=== PATIENT | female | born 2000 | race Caucasian/White ===

== ENCOUNTER 2024-04-13 23:27 | Emergency (ER) | payer OTHER ==
[2024-04-13 23:44] VITALS: TEMP 97.9
--- NOTE | 2024-04-14 00:27 | ED ---
Abdominal Pain HPI - General Source: patient Mode of arrival: ambulatory <Emely Page - Last Filed: 04/14/24 00:26> - General Source: patient, RN notes reviewed, old records reviewed <Alfredo Russo - Last Filed: 04/14/24 05:55> <Parker Grissom - Last Filed: 04/14/24 08:46> - General Chief Complaint: Abdominal Pain Stated Complaint: Abd pain Time Seen by Provider: 04/14/24 00:26 - History of Present Illness Initial Comments: 23-year-old female presenting with chief complaint of abdominal pain. Started around a half an hour prior to arrival. This is a sharp pain in the upper abdomen, mainly the right upper quadrant. Admits to nausea with no vomiting. No history of abdominal surgeries. (Page,Emely) Is a 23-year-old female presents emergency department complaining of abdominal pain of unknown reason. States she suddenly had it started last night. Cause nausea but no emesis. States that it is in the epigastric and right upper quadrant. Worse with some movements. Patient is currently on her menstrual cycle she thinks he describes it similar to cramping but worse. Denies any diarrhea or constipation. Denies vaginal discharge or bleeding. Denies any urinary complaints. Presents for further evaluation at this time. No history of intra-abdominal surgeries. (Alfredo Russo) - Related Data Allergies Allergy/AdvReac Type Severity Reaction Status Date / Time No Known Allergies Allergy Verified 04/13/24 23:44 Review of Systems ROS Other: All systems not noted in ROS Statement are negative. <Emely Page - Last Filed: 04/14/24 00:26> ROS Other: All systems not noted in ROS Statement are negative. <Alfredo Russo - Last Filed: 04/14/24 05:55> ROS Other: All systems not noted in ROS Statement are negative. <Parker Grissom - Last Filed: 04/14/24 08:46> ROS Statement: Those systems with pertinent positive or pertinent negative responses have been documented in the HPI. Review of Systems: CONST: Denies fever EYES: Denies blurry vision ENT: Denies nasal congestion C/V: Denies Chest pain RESP: Denies shortness of breath GI: Endorses abdominal pain : Denies dysuria SKIN: Denies rash. MSK: Denies joint pain. NEURO: Denies headache (Alfredo Russo) Past Medical History Past Medical History: No Reported History History of Any Multi-Drug Resistant Organisms: None Reported Past Surgical History: No Surgical Hx Reported Past Psychological History: Anxiety, Depression Smoking Status: Never smoker Past Alcohol Use History: None Reported Past Drug Use History: None Reported <Emely Page - Last Filed: 04/14/24 00:26> General Exam <Emely Page - Last Filed: 04/14/24 00:26> <Alfredo Russo - Last Filed: 04/14/24 05:55> - General Exam Comments Initial Comments: Visual Physical Exam Vital signs reviewed General: Well-appearing, nontoxic, no acute distress. Head: Normocephalic, atraumatic Eyes: PERRLA, EOMI ENT: Airway patent Chest: Nonlabored breathing Skin: No visual rash, normal skin tone Neuro: Alert and oriented 3 Musculoskeletal: No gross abnormalities (Emely Page) General: Appears in mild distress secondary to abdominal discomfort. HEAD: Normal with no signs of head trauma. EYES: PERRLA, EOMI, conjunctiva normal, no discharge. ENT: Hearing grossly intact, normal oropharynx. RESPIRATORY: Clear breath sounds bilaterally. No wheezes, rales, or rhonchi. C/V: Regular rate and rhythm. S1 and S2 auscultated, no edema, peripheral pulses 2+ and intact throughout ABD: Abdomen is soft, nondistended. Tender to palpation in the right upper quadrant and epigastric region. No significant lower quadrant tenderness to palpation. No suprapubic tenderness to palpation. No guarding or rebound tenderness. No peritoneal signs. EXT: Normal range of motion, no obvious deformity SKIN: No rashes or lesions observed on exposed skin. NEURO: Alert and oriented x 4. (Alfredo Russo) Course Vital Signs 04/13/24 04/14/24 04/14/24 23:39 05:18 08:38 Temperature 97.9 F Pulse Rate 103 H 100 91 Respiratory 16 18 16 Rate Blood Pressure 109/76 116/97 133/95 O2 Sat by Pulse 97 96 99 Oximetry Medical Decision Making <Emely Page - Last Filed: 04/14/24 00:26> - Lab Data Result diagrams: 04/14/24 01:50 04/14/24 01:50 <KaranYuriAlfredo - Last Filed: 04/14/24 05:55> - Lab Data Result diagrams: 04/14/24 08:21 04/14/24 01:50 <Parker Grissom - Last Filed: 04/14/24 08:46> - Medical Decision Making I performed the quick note portion of this visit, electronically signed Emely Page PA-C (Emely Page) Was pt. sent in by a medical professional or institution (, [facility], PROTOTYPE MODEL [employer]ER, urgent care, hospital, or prison...) When possible be specific @ -No Did you speak to anyone other than the patient for history (EMS, parent, family, police, friend...)? What history was obtained from this source @ -No Did you review nursing and triage notes (agree or disagree)? Why? @ -I reviewed and agree with nursing and triage notes Were old charts reviewed (outside hosp., previous admission, EMS record, old EKG, old radiological studies, urgent care reports/EKG's, prison records)? Report findings @ -No old charts were reviewed Differential Diagnosis (chest pain, altered mental status, abdominal pain women, abdominal pain men, vaginal bleeding, weakness, fever, dyspnea, syncope, headache, dizziness, GI bleed, back pain, seizure, CVA, palpatations, mental health, musculoskeletal)? @ -Differential Abdominal Pain Women: Appendicitis, Cholecystitis, diverticulosis, ischemic bowel, pancreatitis, hepatitis, UTI, gastroenteritis, AAA, incarcerated hernia, bowel obstruction, constipation, inflammatory bowel, hepatitis, peptic ulcer disease, splenic infarction, perforated viscus, vulvitis, ovarian torsion, PID, kidney stone, pl acenta abruption, this is not meant to be an all-inclusive list EKG interpreted by me (3pts min.). @ -As above X-rays interpreted by me (1pt min.). @ -None done CT interpreted by me (1pt min.). @ -CT imaging revealed no obvious acute intra-abdominal process. Patient does have a right greater than left ovarian follicle or cyst but no other obvious finding. U/S interpreted by me (1pt. min.). @ -Gallbladder ultrasound negative for any obvious acute process with the gallbladder but they do see what could be a cyst versus appendix. We will obtain CT imaging. What testing was considered but not performed or refused? (CT, X-rays, U/S, labs)? Why? @ -None What meds were considered but not given or refused? Why? @ -None Did you discuss the management of the patient with other professionals (professionals i.e. , PA, PROTOTYPE MODEL MAKER, lab, RT, psych nurse, case management social worker, marketing information manager, teacher, cra officer, case resource manager)? Give summary @ -Discussed with Dr. Marshall who requested that we obtain the ultrasound of the pelvis prior to admission to medicine in case it is an RESPIRATORY CLINICIAN in case. I believe this is reasonable. Was smoking cessation discussed for >3mins.? @ -No Was critical care preformed (if so, how long)? @ -No Were there social determinants of health that impacted care today? How? (Homelessness, low income, unemployed, alcoholism, drug addiction, transportation, low edu. Level, literacy, decrease access to med. care, nursing home, rehab)? @ -No Was there de-escalation of care discussed even if they declined (Discuss DNR or withdrawal of care, Hospice)? DNR status @ -No What co-morbidities impacted this encounter? (DM, HTN, Smoking, COPD, CAD, Cancer, CVA, ARF, Chemo, Hep., AIDS, mental health diagnosis, sleep apnea, morbid obesity)? @ -None Was patient admitted / discharged? Hospital course, mention meds given and route, prescriptions, significant lab abnormalities, going to OR and other pertinent info. @ -Based on the patient's presentation and physical exam, presents emergency d epartment with abdominal pain. Vital signs are within acceptable limits. Seems to be more right upper quadrant and epigastric region. We will obtain abdominal laboratory studies and start with a gallbladder ultrasound. Originally seen as a quick note. Patient in agreement this plan. Given IV fluids. Declined analgesia medications. Laboratory studies remarkable for leukocytosis of 25.4. Lactic acid is slightly elevated 2.1. She is not . Remainder the workup unremarkable. Due to the white count, we will obtain a CT at this time. Ultrasound did not show any gallbladder pathology but did show findings concerning for possible appendicitis versus ovarian cyst. CT abdomen pelvis reveals no obvious acute process other than the ovarian cyst. I discussed results with the patient. I would like to obtain an ultrasound of the pelvis. She was in agreement this plan. She was empirically given a dose of Zosyn as it was taking a long time for radiology to read the CT report. We will continue with maintenance fluids. Patient was in agreement this plan. I was going to admit to medicine for the leukocytosis of unknown significance however discussed with Dr. Marshall and he requested ultrasound of the pelvis to be obtained first in case it is a RESPIRATORY CLINICIAN complaint for admission. I believe this is reasonable. Patient signed out to Dr. Grissom pending results of pelvic ultrasound. Undiagnosed new problem with uncertain prognosis? @ -No Drug Therapy requiring intensive monitoring for toxicity (Heparin, Nitro, Insulin, Cardizem)? @ -No Were any procedures done? @ -No Diagnosis/symptom? @ -Abdominal pain of unknown etiology, ovarian cyst, leukocytosis Acute, or Chronic, or Acute on Chronic? @ -Acute Uncomplicated (without systemic symptoms) or Complicated (systemic symptoms)? @ -Complicated Side effects of treatment? @ -No Exacerbation, Progression, or Severe Exacerbation? @ -No Poses a threat to life or bodily function? How? (Chest pain, USA, MS, pneumonia, PE, COPD, DKA, ARF, appy, cholecystitis, CVA, Diverticulitis, Homicidal, Suicidal, threat to staff... and all critical care pts) @ -Possibly, yes (Alfredo Russo) I did reevaluate the patient after signout she is resting comfortably did not require any significant pain medication. No fever. Imaging reviewed including ultrasound of the pelvis which had been ordered and results were pending. This showed a enlarged right ovary with normal arterial and venous flow. Patient does report that her pain is more so on the right. Patient prefers to not be admitted. I did repeat a CBC which shows a downtrending white blood cell count at 14. Patient is given return parameters and will return with fever, worsening pain, nausea vomiting, any new or concerning symptoms. She will follow-up with her primary care provider. (Parker Grissom) - Lab Data Lab Results 04/14/24 04/14/24 04/14/24 Range/Units 01:50 01:50 01:50 WBC 25.4 H (3.8-10.6) k/uL RBC 5.42 H (3.80-5.40) m/uL Hgb 15.4 (11.4-16.0) gm/dL Hct 46.3 H (34.0-46.0) % MCV 85.5 (80.0-100.0) fL MCH 28.5 (25.0-35.0) pg MCHC 33.3 (31.0-37.0) g/dL RDW 13.4 (11.5-15.5) % Plt Count 338 (150-450) k/uL MPV 8.4 Neutrophils % 77 % Lymphocytes % 16 % Monocytes % 4 % Eosinophils % 1 % Basophils % 0 % Neutrophils # 19.7 H (1.3-7.7) k/uL Lymphocytes # 4.1 (1.0-4.8) k/uL Monocytes # 1.0 (0-1.0) k/uL Eosinophils # 0.3 (0-0.7) k/uL Basophils # 0.1 (0-0.2) k/uL Sodium 133 L (137-145) mmol/L Potassium 4.1 (3.5-5.1) mmol/L Chloride 102 (98-107) mmol/L Carbon Dioxide 25 (22-30) mmol/L Anion Gap 6 mmol/L BUN 18 H (7-17) mg/dL Creatinine 0.66 (0.52-1.04) mg/dL Est GFR (CKD-EPI)AfAm >90 (>60 ml/min/1.73 sqM) Est GFR (CKD-EPI)NonAf >90 (>60 ml/min/1.73 sqM) Glucose 102 H (74-99) mg/dL Lactic Ac Sepsis Rflx Plasma Lactic Acid Lars 2.1 H* (0.7-2.0) mmol/L Calcium 9.2 (8.4-10.2) mg/dL Total Bilirubin 0.6 (0.2-1.3) mg/dL AST 27 (14-36) U/L ALT 21 (4-34) U/L Alkaline Phosphatase 80 (38-126) U/L Total Protein 8.2 (6.3-8.2) g/dL Albumin 4.6 (3.5-5.0) g/dL Amylase 69 (30-110) U/L Lipase 72 (23-300) U/L HCG, Qual Urine Color Urine Appearance (Clear) Urine pH (5.0-8.0) Ur Specific Anson (1.001-1.035) Urine Protein (Negative) Urine Glucose (UA) (Negative) Urine Ketones (Negative) Urine Blood (Negative) Urine Nitrite (Negative) Urine Bilirubin (Negative) Urine Urobilinogen (<2.0) mg/dL Ur Leukocyte Esterase (Negative) Urine RBC (0-5) /hpf Urine WBC (0-5) /hpf Ur Squamous Epith Cells (0-4) /hpf Urine Bacteria (None) /hpf Urine Mucus (None) /hpf Group A Strep (PCR) (Not Detectd) 04/14/24 04/14/24 04/14/24 Range/Units 01:50 03:29 04:11 WBC (3.8-10.6) k/uL RBC (3.80-5.40) m/uL Hgb (11.4-16.0) gm/dL Hct (34.0-46.0) % MCV (80.0-100.0) fL MCH (25.0-35.0) pg MCHC (31.0-37.0) g/dL RDW (11.5-15.5) % Plt Count (150-450) k/uL MPV Neutrophils % % Lymphocytes % % Monocytes % % Eosinophils % % Basophils % % Neutrophils # (1.3-7.7) k/uL Lymphocytes # (1.0-4.8) k/uL Monocytes # (0-1.0) k/uL Eosinophils # (0-0.7) k/uL Basophils # (0-0.2) k/uL Sodium (137-145) mmol/L Potassium (3.5-5.1) mmol/L Chloride (98-107) mmol/L Carbon Dioxide (22-30) mmol/L Anion Gap mmol/L BUN (7-17) mg/dL Creatinine (0.52-1.04) mg/dL Est GFR (CKD-EPI)AfAm (>60 ml/min/1.73 sqM) Est GFR (CKD-EPI)NonAf (>60 ml/min/1.73 sqM) Glucose (74-99) mg/dL Lactic Ac Sepsis Rflx Y Plasma Lactic Acid Lars (0.7-2.0) mmol/L Calcium (8.4-10.2) mg/dL Total Bilirubin (0.2-1.3) mg/dL AST (14-36) U/L ALT (4-34) U/L Alkaline Phosphatase (38-126) U/L Total Protein (6.3-8.2) g/dL Albumin (3.5-5.0) g/dL Amylase (30-110) U/L Lipase (23-300) U/L HCG, Qual Not Detected Urine Color Colorless Urine Appearance Clear (Clear) Urine pH 6.0 (5.0-8.0) Ur Specific Anson 1.027 (1.001-1.035) Urine Protein Negative (Negative) Urine Glucose (UA) Negative (Negative) Urine Ketones Negative (Negative) Urine Blood Negative (Negative) Urine Nitrite Negative (Negative) Urine Bilirubin Negative (Negative) Urine Urobilinogen <2.0 (<2.0) mg/dL Ur Leukocyte Esterase Trace H (Negative) Urine RBC 1 (0-5) /hpf Urine WBC 7 H (0-5) /hpf Ur Squamous Epith Cells 2 (0-4) /hpf Urine Bacteria Rare H (None) /hpf Urine Mucus Rare H (None) /hpf Group A Strep (PCR) (Not Detectd) 04/14/24 04/14/24 Range/Units 04:48 08:21 WBC 14.1 H (3.8-10.6) k/uL RBC 4.66 (3.80-5.40) m/uL Hgb 13.5 (11.4-16.0) gm/dL Hct 39.8 (34.0-46.0) % MCV 85.5 (80.0-100.0) fL MCH 29.0 (25.0-35.0) pg MCHC 33.9 (31.0-37.0) g/dL RDW 13.3 (11.5-15.5) % Plt Count 320 (150-450) k/uL MPV 7.8 Neutrophils % 74 % Lymphocytes % 19 % Monocytes % 5 % Eosinophils % 1 % Basophils % 0 % Neutrophils # 10.4 H (1.3-7.7) k/uL Lymphocytes # 2.7 (1.0-4.8) k/uL Monocytes # 0.7 (0-1.0) k/uL Eosinophils # 0.1 (0-0.7) k/uL Basophils # 0.0 (0-0.2) k/uL Sodium (137-145) mmol/L Potassium (3.5-5.1) mmol/L Chloride (98-107) mmol/L Carbon Dioxide (22-30) mmol/L Anion Gap mmol/L BUN (7-17) mg/dL Creatinine (0.52-1.04) mg/dL Est GFR (CKD-EPI)AfAm (>60 ml/min/1.73 sqM) Est GFR (CKD-EPI)NonAf (>60 ml/min/1.73 sqM) Glucose (74-99) mg/dL Lactic Ac Sepsis Rflx Plasma Lactic Acid Lars (0.7-2.0) mmol/L Calcium (8.4-10.2) mg/dL Total Bilirubin (0.2-1.3) mg/dL AST (14-36) U/L ALT (4-34) U/L Alkaline Phosphatase (38-126) U/L Total Protein (6.3-8.2) g/dL Albumin (3.5-5.0) g/dL Amylase (30-110) U/L Lipase (23-300) U/L HCG, Qual Urine Color Urine Appearance (Clear) Urine pH (5.0-8.0) Ur Specific Anson (1.001-1.035) Urine Protein (Negative) Urine Glucose (UA) (Negative) Urine Ketones (Negative) Urine Blood (Negative) Urine Nitrite (Negative) Urine Bilirubin (Negative) Urine Urobilinogen (<2.0) mg/dL Ur Leukocyte Esterase (Negative) Urine RBC (0-5) /hpf Urine WBC (0-5) /hpf Ur Squamous Epith Cells (0-4) /hpf Urine Bacteria (None) /hpf Urine Mucus (None) /hpf Group A Strep (PCR) NOT DETECTED (Not Detectd) Disposition <Emely Page - Last Filed: 04/14/24 00:26> <Alfredo Russo - Last Filed: 04/14/24 05:55> Is patient prescribed a controlled substance at d/c from ED?: No Time of Disposition: 08:46 <Parker Grissom - Last Filed: 04/14/24 08:46> Clinical Impression: Abdominal pain of unknown etiology, Leukocytosis, Ovarian cyst, Abdominal pain Disposition: HOME SELF-CARE Condition: Fair Instructions (If sedation given, give patient instructions): Abdominal Pain (ED), Leukocytosis (ED) Additional Instructions: Please return to the emergency department with worsening symptoms, fever, any new or concerning symptoms Referrals: None,Stated [Primary Care Provider] - 1-2 days Miguel Rincon DO [REFERRING] - 1-2 days
[2024-04-14] MEDS: SODIUM CHLORIDE 0.9% 1,000 ML IV STA ×2 (02:27→04:18)
[2024-04-14] MEDS: ONDANSETRON 4 MG/2 ML VIAL IVP STA (02:28)
[2024-04-14] MEDS: PANTOPRAZOLE 40 MG/10 ML VIAL IVP STA (02:29)
[2024-04-14 02:32] LABS: Basophils # (A) 0.1 k/uL (0-0.2); Basophils % (A) 0 %; Eosinophils # (A) 0.3 k/uL (0-0.7); Eosinophils % (A) 1 %; HCT 46.3 % (34.0-46.0); HGB 15.4 gm/dL (11.4-16.0); Lymphocytes # (A) 4.1 k/uL (1.0-4.8); Lymphocytes % (A) 16 %; MCH 28.5 pg (25.0-35.0); MCHC 33.3 g/dL (31.0-37.0); MCV 85.5 fL (80.0-100.0); Mean Platelet Volume 8.4; Monocytes % (A) 4 %; Neutrophils # (A) 19.7 k/uL (1.3-7.7); Neutrophils % (A) 77 %; Platelet Count 338 k/uL (150-450); RBC 5.42 m/uL (3.80-5.40); RDW 13.4 % (11.5-15.5); WBC 25.4 k/uL (3.8-10.6)
--- NOTE | 2024-04-14 03:04 | US ---
EXAM: US Abdomen Complete CLINICAL HISTORY: US Reason: RUQ pain TECHNIQUE: Real-time ultrasound of the abdomen with image documentation. COMPARISON: No relevant prior studies available. FINDINGS: Liver: The liver measures 17.4 cm. No intrahepatic bile duct dilation. No focal liver lesion is seen. Gallbladder: The gallbladder is nondilated. No gallstones, wall thickening, or surrounding fluid. Common bile duct: The common bile duct is nondilated measuring 4 mm. Pancreas: The pancreas is only partially visualized but unremarkable. Kidneys: Unremarkable. No stones. No hydronephrosis. The right kidney measures 10.9 x 4.5 x 4.6 cm, 118 mL. Spleen: Unremarkable. No splenomegaly. Aorta: Unremarkable. No abdominal aortic aneurysm. Inferior vena cava: Unremarkable. Other findings: The sales representative health insurance measures a hypoechoic area in the right lower quadrant measuring 3.8 x 4.5 x 2.6 cm. IMPRESSION: Unremarkable appearance of the gallbladder. No acute inflammatory process is seen within the right upper quadrant. The sales representative health insurance measures a hypoechoic area in the right lower quadrant measuring 3.8 x 4.5 x 2.6 cm. No surrounding structures are visible to determine what the sales representative health insurance was measuring. If there is concern for acute abdominal process, consider CT.
[2024-04-14 03:12] LABS: ALT 21 U/L (4-34); African American GFR (CKD) >90 (>60 ml/min/1.73 sqM); Albumin 4.6 g/dL (3.5-5.0); Amylase 69 U/L (30-110); Anion Gap 6 mmol/L; Blood Urea Nitrogen 18 mg/dL (7-17); Calcium 9.2 mg/dL (8.4-10.2); Carbon Dioxide 25 mmol/L (22-30); Chloride 102 mmol/L (98-107); Glucose 102 mg/dL (74-99); Lipase 72 U/L (23-300); Non-African American GFR(CKD) >90 (>60 ml/min/1.73 sqM); Sodium 133 mmol/L (137-145); Total Bilirubin 0.6 mg/dL (0.2-1.3); Total Protein 8.2 g/dL (6.3-8.2)
[2024-04-14 03:27] LABS: AST 27 U/L (14-36); Alkaline Phosphatase 80 U/L (38-126); Potassium 4.1 mmol/L (3.5-5.1)
--- NOTE | 2024-04-14 04:38 | CT ---
EXAM: CT Abdomen and Pelvis With Intravenous Contrast CLINICAL HISTORY: ITS.REASON CT Reason: abd pain TECHNIQUE: Axial computed tomography images of the abdomen and pelvis with intravenous contrast. CTDI is 63.3 mGy and DLP is 2962.4 mGy-cm. This CT exam was performed using one or more of the following dose reduction techniques: automated exposure control, adjustment of the mA and/or kV according to patient size, and/or use of iterative reconstruction technique. COMPARISON: None FINDINGS: Lung bases: Unremarkable. No mass. No consolidation. ABDOMEN: Liver: Hepatic steatosis. Mild hepatomegaly. Gallbladder and bile ducts: Unremarkable. No calcified stones. No ductal dilation. Pancreas: Unremarkable. No mass. No ductal dilation. Spleen: Unremarkable. No splenomegaly. Adrenals: Unremarkable. No mass. Kidneys and ureters: Unremarkable. No hydronephrosis or obstructing ureteral stone. Stomach and bowel: Evaluation of the stomach is limited by underdistention. Fat within the wall of the ascending colon and proximal transverse colon may be secondary to chronic inflammatory process. No mucosal thickening. No definite acute bowel inflammation. PELVIS: Appendix: Normal appendix. Bladder: Unremarkable. No mass. Reproductive: Right greater than left ovarian follicles or cysts could be further evaluated with ultrasound if clinically indicated. ABDOMEN and PELVIS: Intraperitoneal space: Unremarkable. No free air. No significant fluid collection. Bones/joints: No acute fracture. No dislocation. Soft tissues: Unremarkable. Vasculature: Unremarkable. No abdominal aortic aneurysm. Lymph nodes: Nonspecific mildly prominent inguinal lymph nodes and mesenteric and retroperitoneal lymph nodes which could be reactive. IMPRESSION: Right greater than left ovarian follicles or cysts could be further evaluated with ultrasound if clinically indicated. No acute abnormality in the abdomen or pelvis.
[2024-04-14 04:41] LABS: Appearance,Urine Clear (Clear); Bacteria,Urine Rare /hpf; Bilirubin,Urine Negative (Negative); Blood,Urine Negative (Negative); Color,Urine Colorless; Glucose,Urine (UA) Negative (Negative); Ketones,Urine Negative (Negative); Leukocyte Esterase,Urine Trace (Negative); Mucus,Urine Rare /hpf; Nitrite,Urine Negative (Negative); Protein,Urine Negative (Negative); RBC,Urine 1 /hpf (0-5); Specific Gravity,Urine 1.027 (1.001-1.035); Squamous Epithelial Cell,Urine 2 /hpf (0-4); Urobilinogen,Urine <2.0 mg/dL (<2.0); WBC,Urine 7 /hpf (0-5)
[2024-04-14] MEDS: PIPERACILLIN-TAZOBACTAM 3.375 GM in SODIUM CHLORIDE 0.9% 100 ML IVPB STA (05:10)
--- NOTE | 2024-04-14 08:26 | US ---
EXAMINATION TYPE: US pelvis complete transvag DATE OF EXAM: 04/14/2024 COMPARISON: NONE CLINICAL INDICATION: Female, 23 years old with history of eval for ovarian torsion; Pain started 8.5 hours ago. Irregular periods. G0. TECHNIQUE: Transvaginal (TV) and Transabdominal (TA) . Transabdominal grayscale, color Doppler and spectral Doppler sonographic images of the pelvis were acquired. FINDINGS: Date of LMP: Unknown EXAM MEASUREMENTS: Uterus: 7.7 x 3.7 x 2.7 cm Endometrial Stripe: 0.42 cm Right Ovary: 5.7 x 4.1 x 4.6 cm for volume of 39.6 mL. Left Ovary: 3.7 x 2.9 x 2.6 cm for a volume of 14.5 mL 1. Uterus: Anteverted. Myometrium shows some heterogeneity 2. Endometrium: 0.42 cm 3. Right Ovary: Enlarged. *Anechoic area seen= 3.4 x 3.4 x 3.8 cm. 4. Left Ovary: Anechoic area seen= 2.3 x 1.9 x 1.5 cm. Spectral, color and waveform doppler imaging shows arterial and venous flow within the ovaries. Anna Marie ble to clearly evaluate bloodflow to left ovary by TV, both arterial and venous waveforms shown TA. 5. Bilateral Adnexa: Appear wnl 6. Posterior cul-de-sac: Appears wnl Equipment Engineering Technician notes: Exam slightly limited due to patient body habitus. IMPRESSION: 1. Satisfactory arterial and venous flow to the right ovary. Limited blood flow assessment by transva ginal scanning though the left ovary by appears satisfactory by transabdominal scanning. 2. The right ovary is enlarged with a volume of 40 mL (normal less than 21 mL). This may be due to an underlying 3.8 cm dominant follicle or functional cyst. Despite the satisfactory vascular Dopplers, if there is persistent clinical concern with localizing pain here, close follow-up is recommended. [facility], , 04/14/2024 8:23 AM
[2024-04-14 08:39] VITALS: BP 133/95; RESP 16
[2024-04-14 08:41] LABS: Basophils % (A) 0 %; Eosinophils # (A) 0.1 k/uL (0-0.7); Eosinophils % (A) 1 %; HCT 39.8 % (34.0-46.0); HGB 13.5 gm/dL (11.4-16.0); Lymphocytes # (A) 2.7 k/uL (1.0-4.8); Lymphocytes % (A) 19 %; MCHC 33.9 g/dL (31.0-37.0); MCV 85.5 fL (80.0-100.0); Mean Platelet Volume 7.8; Monocytes # (A) 0.7 k/uL (0-1.0); Monocytes % (A) 5 %; Neutrophils # (A) 10.4 k/uL (1.3-7.7); Neutrophils % (A) 74 %; Platelet Count 320 k/uL (150-450); RBC 4.66 m/uL (3.80-5.40); RDW 13.3 % (11.5-15.5); WBC 14.1 k/uL (3.8-10.6)
[2024-04-14] MEDS: KETOROLAC 15 MG/ML 1 ML VIAL IM STA (08:49)
[2024-04-14 09:43] VITALS: PULSE 90
== END 2024-04-14 09:44 | disposition home or self-care (01) ==
LOC: EC 23:27
DX: N83.209 Unspecified ovarian cyst, unspecified side (principal); D72.829 Elevated white blood cell count, unspecified; N92.6 Irregular menstruation, unspecified
CPT/HCPCS: 36415; 87651; 80053; 82150; 83605; 83690; 85025; 81001; 84703; 87040; 93975; 76705; 76856; 76830; 74177; 99284; 96372; 96365; 96375 ×2; 96361 ×5; J2543; J2405; J1885; Q9967; J2470

== ENCOUNTER → 2024-04-20 | Outpatient (CLI) | payer OTHER ==
--- NOTE | 2024-04-20 15:34 | XR ---
EXAMINATION TYPE: XR chest 2V DATE OF EXAM: 04/20/2024 3:22 PM COMPARISON: None CLINICAL INDICATION: Female, 23 years old with history of R06.02 SOB; [facility] TECHNIQUE: XR chest 2V Frontal and lateral views of the chest. FINDINGS: Lungs/Pleura: There is no evidence of pleural effusion, focal consolidation, or pneumothorax. Pulmonary vascularity: Unremarkable. Heart/mediastinum: Cardiomediastinal silhouette is unremarkable. Musculoskeletal: No acute osseous pathology. IMPRESSION: No acute cardiopulmonary disease/process. [facility], , 04/20/2024 3:32 PM
== END | disposition home or self-care (01) ==
LOC: RADXRMAIN 15:01
PROVIDERS: ATTEND Nurse Practitioner Family
DX: R06.02 Shortness of breath (principal)
CPT/HCPCS: 71046